=== PATIENT | female | born 1955 | race Caucasian/White ===

== ENCOUNTER 2017-05-04 10:45 | Observation (INO) | payer MEDICAID ==
[2017-05-04] MEDS ORDERED: Sodium Chloride 0.9% 10 ML Syringe FLUSH PRN ×2 (11:20→13:51)
[2017-05-04] MEDS ORDERED: Sodium Chloride 0.9% 1,000 ML IV ONE ×2 (11:21→13:18)
[2017-05-04] MEDS ORDERED: Ondansetron 4 MG/2 ML SDV IVPUSH ONE (11:22)
[2017-05-04] MEDS ORDERED: Ketorolac 30 MG/ML SDV IVPUSH ONE (11:22)
[2017-05-04] MEDS ORDERED: Morphine 4 MG/ML Syringe IVPUSH ONE ×2 (11:22→13:20)
--- NOTE | 2017-05-04 11:27 | EDM.PDOC ---
ED HPI GENERAL MEDICAL PROBLEM - General Chief Complaint: Genitourinary Problem Stated Complaint: RT SIDE/PELVIC PAIN Time Seen by Provider: 05/04/17 11:15 Source of Information: Reports: Patient History Limitations: Reports: No Limitations - History of Present Illness INITIAL COMMENTS - FREE TEXT/NARRATIVE: Perez is a 62 year old female who presents to the ED today with c/o RLQ/Pelvic pain that started on and has progressively gotten worse. Patient reports that the pain is stabbing in nature. Patient also reports hematuria since and BRB from rectum that started last night. Patient denies any vomiting. Patient reports feeling hot and cold. Patient denies having any pain like this in the past, she denies any hx of kidney stones. Patient does still have both ovaries and uterus as well as appendix. Patient denies any dysuria, she does have some mild frequency. Duration: Day(s): (3) - Related Data Allergies Allergy/AdvReac Type Severity Reaction Status Date / Time amoxicillin trihydrate Allergy Liver Verified 12/16/15 06:25 [From Augmentin] Problems potassium clavulanate Allergy Liver Verified 12/16/15 06:25 [From Augmentin] Problems Home Meds: Home Meds NK [No Known Home Meds] 12/16/15 [History] Past Medical History HEENT History: Reports: Impaired Vision Cardiovascular History: Reports: None Respiratory History: Reports: None Gastrointestinal History: Reports: Other (See Below) Other Gastrointestinal History: Had spots on liver that patient states were related to an antibiotic reaction in past. 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: Musculoskeletal History: Reports: None Neurological History: Reports: None Psychiatric History: Reports: None Endocrine/Metabolic History: Reports: None Hematologic History: Reports: None Immunologic History: Reports: None Oncologic (Cancer) History: Reports: None Dermatologic History: Reports: None - Infectious Disease History Infectious Disease History: Reports: None - Past Surgical History Head Surgeries/Procedures: Reports: None HEENT Surgical History: Reports: Adenoidectomy, Tonsillectomy, Other (See Below) GI Surgical History: Reports: Colonoscopy, Hernia Repair/Other Social & Family History - Family History HEENT: Reports: Impaired Vision Cardiac: Reports: Bypass, Hypertension Respiratory: Reports: None GI: Reports: None : Reports: None OBGYN: Reports: None Musculoskeletal: Reports: None Neurological: Reports: None Psychiatric: Reports: None Endocrine/Metabolic: Reports: Diabetes, Type I Hematologic: Reports: None Immunologic: Reports: None Dermatologic: Reports: None Oncologic: Reports: None - Tobacco Use Smoking Status *Q: Never Smoker Second Hand Smoke Exposure: No - Alcohol Use Days Per Week of Alcohol Use: 0 - Recreational Drug Use Recreational Drug Use: No ED ROS GENERAL - Review of Systems Review Of Systems: See Below Constitutional: Reports: Fever, Chills, Decreased Appetite HEENT: Reports: No Symptoms Respiratory: Reports: No Symptoms Cardiovascular: Reports: No Symptoms Endocrine: Reports: No Symptoms GI/Abdominal: Reports: Abdominal Pain, Bloody Stool : Reports: Frequency, Hematuria Musculoskeletal: Reports: No Symptoms Skin: Reports: No Symptoms Neurological: Reports: No Symptoms Psychiatric: Reports: No Symptoms Hematologic/Lymphatic: Reports: No Symptoms Immunologic: Reports: No Symptoms ED EXAM, RENAL/ - Physical Exam Exam: See Below Exam Limited By: No Limitations General Appearance: Alert, WD/WN, Anxious, Other (Distressed secondary to pain) Ears: Normal External Exam Throat/Mouth: Normal Inspection, Other (Mildly dry mucus membranes) Head: Atraumatic Neck: Normal Inspection Respiratory/Chest: No Respiratory Distress, Lungs Clear Cardiovascular: Normal Peripheral Pulses, Regular Rate, Rhythm, No Murmur GI/Abdominal: Normal Bowel Sounds, Guarding (RLQ), Tender, Other (Pain around McBurney's point) Extremities: Normal Inspection Neurological: Alert, Oriented, CN II-XII Intact Psychiatric: Anxious Lymphatic: No Adenopathy Course - Vital Signs Text/Narrative:: 1315-Patient continues to c/o pain. US did come and speak with me, they verbally report a slightly thickened endometrium but otherwise unremarkable. Patient's GFR today is 50, I am going to obtain a CT of abdomen/pelvis. I have ordered another liter of NS secondary to contrast administration and have ordered additional pain medication for patient. 1450-CT results are negative for any acute findings. Discussed results with patient, she reports she is still having pain and feels weak. Patient feels unsafe at this time going home. I do not have a clear etiology for patient's symptoms today. I feel that any concerning etiology at this time has been ruled out. Will discuss patient with hospitalist for observation admission for pain control and safe disposition planning. Patient has been accepted by Dr. Zelaya, will be admitted in stable condition. Last Recorded V/S: Last Vital Signs Temp 36.6 C 05/04/17 14:16 Pulse 62 05/04/17 14:16 Resp 16 05/04/17 14:16 BP 148/76 H 05/04/17 14:16 Pulse Ox 92 L 05/04/17 14:16 - Orders/Labs/Meds Orders: Active Orders 24 hr Category Date Time Status Peripheral IV Care [RC] . DIRECTED Care 05/04/17 11:20 Active Abdomen Pelvis w Cont [CT] Stat Exams 05/04/17 13:18 Taken Pelvis Non OB Comp [US] Stat Exams 05/04/17 12:01 Taken Iopamidol [Isovue-300 (61%)] Med 05/04/17 14:00 Active 150 ml IV . DIRECTED Sodium Chloride 0.9% [Saline Flush] Med 05/04/17 11:20 Active 10 ml FLUSH ASDIRECTED PRN Sodium Chloride 0.9% [Saline Flush] Med 05/04/17 13:51 Active 10 ml FLUSH ONETIME PRN Peripheral IV Insertion Adult [OM.PC] Routine Oth 05/04/17 11:20 Ordered Medication Orders Iopamidol (Isovue-300 (61%)) 150 ml IV . DIRECTED TAL Last Admin: 05/04/17 14:02 Dose: 150 ml Sodium Chloride (Saline Flush) 10 ml FLUSH ASDIRECTED PRN PRN Reason: Keep Vein Open Last Admin: 05/04/17 11:42 Dose: 10 ml Sodium Chloride (Saline Flush) 10 ml FLUSH ONETIME PRN PRN Reason: PER RADIOLOGY PROTOCOL Last Admin: 05/04/17 14:02 Dose: 10 ml Labs: Laboratory Tests 05/04/17 05/04/17 05/04/17 Range/Units 11:31 11:31 12:05 WBC 10.5 (4.5-11.0) K/uL RBC 4.75 (3.30-5.50) M/uL Hgb 14.7 D (12.0-15.0) g/dL Hct 44.7 (36.0-48.0) % MCV 94 (80-98) fL MCH 31 (27-31) pg MCHC 33 (32-36) % Plt Count 261 (150-400) K/uL Neut % (Auto) 73 H (36-66) % Lymph % (Auto) 20 L (24-44) % Wilkin % (Auto) 6 (2-6) % Eos % (Auto) 1 L (2-4) % Baso % (Auto) 0 (0-1) % Sodium 144 (140-148) mmol/L Potassium 3.6 (3.6-5.2) mmol/L Chloride 105 (100-108) mmol/L Carbon Dioxide 31 (21-32) mmol/L Anion Gap 8.4 (5.0-14.0) mmol/L BUN 14 (7-18) mg/dL Creatinine 1.1 H (0.6-1.0) mg/dL Est Cr Clr Drug Dosing 52.81 mL/min Estimated GFR (MDRD) 50 L (>60) Glucose 102 (74-106) mg/dL Calcium 9.1 (8.5-10.1) mg/dL Total Bilirubin 0.5 D (0.2-1.0) mg/dL AST 25 (15-37) U/L ALT 30 (12-78) U/L Alkaline Phosphatase 72 (46-116) U/L Total Protein 7.3 (6.4-8.2) g/dL Albumin 3.4 (3.4-5.0) g/dL Globulin 3.9 H (2.3-3.5) g/dL Albumin/Globulin Ratio 0.9 L (1.2-2.2) Lipase (73-393) U/L Urine Color Yellow Urine Appearance Clear Urine pH 7.0 (4.5-8.0) Ur Specific [place] 1.015 (1.008-1.030) Urine Protein Negative (NEGATIVE) mg/dL Urine Glucose (UA) Normal (NEGATIVE) mg/dL Urine Ketones Negative (NEGATIVE) mg/dL Urine Occult Blood Large (NEGATIVE) Urine Nitrite Negative (NEGATIVE) Urine Bilirubin Negative (NEGATIVE) Urine Urobilinogen Normal (NORMAL) mg/dL Ur Leukocyte Esterase Negative (NEGATIVE) Urine RBC 0-5 (0-5) Urine WBC 0-5 (0-5) Ur Epithelial Cells Moderate Amorphous Sediment Numerous Urine Bacteria Few Urine Mucus Few 05/04/17 Range/Units 14:59 WBC (4.5-11.0) K/uL RBC (3.30-5.50) M/uL Hgb (12.0-15.0) g/dL Hct (36.0-48.0) % MCV (80-98) fL MCH (27-31) pg MCHC (32-36) % Plt Count (150-400) K/uL Neut % (Auto) (36-66) % Lymph % (Auto) (24-44) % Wilkin % (Auto) (2-6) % Eos % (Auto) (2-4) % Baso % (Auto) (0-1) % Sodium (140-148) mmol/L Potassium (3.6-5.2) mmol/L Chloride (100-108) mmol/L Carbon Dioxide (21-32) mmol/L Anion Gap (5.0-14.0) mmol/L BUN (7-18) mg/dL Creatinine (0.6-1.0) mg/dL Est Cr Clr Drug Dosing mL/min Estimated GFR (MDRD) (>60) Glucose (74-106) mg/dL Calcium (8.5-10.1) mg/dL Total Bilirubin (0.2-1.0) mg/dL AST (15-37) U/L ALT (12-78) U/L Alkaline Phosphatase (46-116) U/L Total Protein (6.4-8.2) g/dL Albumin (3.4-5.0) g/dL Globulin (2.3-3.5) g/dL Albumin/Globulin Ratio (1.2-2.2) Lipase 172 (73-393) U/L Urine Color Urine Appearance Urine pH (4.5-8.0) Ur Specific [place] (1.008-1.030) Urine Protein (NEGATIVE) mg/dL Urine Glucose (UA) (NEGATIVE) mg/dL Urine Ketones (NEGATIVE) mg/dL Urine Occult Blood (NEGATIVE) Urine Nitrite (NEGATIVE) Urine Bilirubin (NEGATIVE) Urine Urobilinogen (NORMAL) mg/dL Ur Leukocyte Esterase (NEGATIVE) Urine RBC (0-5) Urine WBC (0-5) Ur Epithelial Cells Amorphous Sediment Urine Bacteria Urine Mucus Meds: Medications Generic Name Dose Route Start Last Admin Trade Name Freq PRN Reason Stop Dose Admin Iopamidol 150 ml 05/04/17 14:00 05/04/17 14:02 Isovue-300 (61%) IV 150 ml . DIRECTED TAL Administration Sodium Chloride 10 ml 05/04/17 11:20 05/04/17 11:42 Saline Flush FLUSH 10 ml ASDIRECTED PRN Administration Keep Vein Open Sodium Chloride 10 ml 05/04/17 13:51 05/04/17 14:02 Saline Flush FLUSH 10 ml ONETIME PRN Administration PER RADIOLOGY PROTOCOL Discontinued Medications Generic Name Dose Route Start Last Admin Trade Name Onur PRN Reason Stop Dose Admin Sodium Chloride 1,000 mls @ 999 mls/hr 05/04/17 11:21 05/04/17 11:44 Normal Saline IV 05/04/17 12:21 999 mls/hr .BOLUS ONE Administration Sodium Chloride 1,000 mls @ 999 mls/hr 05/04/17 13:18 05/04/17 13:44 Normal Saline IV 05/04/17 14:18 999 mls/hr .BOLUS ONE Administration Sodium Chloride 85 mls @ 3 mls/sec 05/04/17 13:51 05/04/17 14:02 Normal Saline IV 05/04/17 13:52 3 mls/sec ONETIME ONE Administration Ketorolac Tromethamine 15 mg 05/04/17 11:22 05/04/17 11:41 Toradol IVPUSH 05/04/17 11:23 15 mg ONETIME ONE Administration Morphine Sulfate 4 mg 05/04/17 11:22 05/04/17 11:42 Morphine IVPUSH 05/04/17 11:23 4 mg ONETIME ONE Administration Morphine Sulfate 4 mg 05/04/17 13:20 05/04/17 13:43 Morphine IVPUSH 05/04/17 13:21 4 mg ONETIME ONE Administration Ondansetron HCl 4 mg 05/04/17 11:22 05/04/17 11:41 Zofran IVPUSH 05/04/17 11:23 4 mg ONETIME ONE Administration Departure - Departure Time of Disposition: 16:00 Disposition: Admitted As Inpatient 65 Condition: Good, Fair Clinical Impression: Right lower quadrant abdominal pain, Weakness generalized - Discharge Information Forms: ED Department Discharge - My Orders Last 24 Hours: My Active Orders 05/04/17 11:20 Peripheral IV Care [RC] . DIRECTED Sodium Chloride 0.9% [Saline Flush] 10 ml FLUSH ASDIRECTED PRN Peripheral IV Insertion Adult [OM.PC] Routine 05/04/17 12:01 Pelvis Non OB Comp [US] Stat 05/04/17 13:18 Abdomen Pelvis w Cont [CT] Stat 05/04/17 13:51 Sodium Chloride 0.9% [Saline Flush] 10 ml FLUSH ONETIME PRN 05/04/17 14:00 Iopamidol [Isovue-300 (61%)] 150 ml IV . DIRECTED - Assessment/Plan Last 24 Hours: My Active Orders 05/04/17 11:20 Peripheral IV Care [RC] . DIRECTED Sodium Chloride 0.9% [Saline Flush] 10 ml FLUSH ASDIRECTED PRN Peripheral IV Insertion Adult [OM.PC] Routine 05/04/17 12:01 Pelvis Non OB Comp [US] Stat 05/04/17 13:18 Abdomen Pelvis w Cont [CT] Stat 05/04/17 13:51 Sodium Chloride 0.9% [Saline Flush] 10 ml FLUSH ONETIME PRN 05/04/17 14:00 Iopamidol [Isovue-300 (61%)] 150 ml IV . DIRECTED
[2017-05-04] MEDS ORDERED: Iopamidol 612 MG/ML 150 ML Bottle IV SCH (14:00)
--- NOTE | 2017-05-04 15:57 | PCM.HP ---
H&P History of Present Illness - General Date of Service: 05/04/17 Admit Problem/Dx: Admission Diagnosis/Problem Admission Diagnosis/Problem Abdominal pain Source of Information: Patient, Provider History Limitations: Reports: No Limitations - History of Present Illness Initial Comments - Free Text/Narative: Perez presents to the emergency room today with 2 days of progressive right lower quadrant and generalized abdominal pain. She reports initially right lower quadrant pain with a variety of descriptions including sharp and pressure- like and achy. Pain radiates throughout the right side of her abdomen. Pain is worse with moving around or any sort of pressure. Food does not seem to make it any worse. She has been taking Tylenol but this does not help any. She has episodes of nausea as well as some vomiting. She has noticed a few episodes of vaginal spotting over the past 2 days as well. This is better relatively small quantity. She thinks maybe she had a small quantity of blood per rectum yesterday as well. She has not had any fevers. She does urinate frequently but this is chronic. No complaints of dysuria or change in her urine. Appetite has been decreased from baseline as has her energy. Weight has been stable. No recent issues with tremors. No obvious sick contacts or travel. Bowels have been moving normally. Workup in the emergency room has been reassuring with fairly normal laboratory testing. CT scan of the abdomen and pelvis did not show acute pathology. Her pelvic ultrasound did show mild thickening of the endometrium but no other obvious causes for her difficulty. She will be admitted for pain control and observation. - Related Data Allergies/Adverse Reactions: Allergies Allergy/AdvReac Type Severity Reaction Status Date / Time amoxicillin trihydrate Allergy Liver Verified 12/16/15 06:25 [From Augmentin] Problems potassium clavulanate Allergy Liver Verified 12/16/15 06:25 [From Augmentin] Problems Home Medications: Home Meds NK [No Known Home Meds] 12/16/15 [History] Past Medical History HEENT History: Reports: Impaired Vision Cardiovascular History: Reports: None Respiratory History: Reports: None Gastrointestinal History: Reports: Other (See Below) Other Gastrointestinal History: Had spots on liver that patient states were related to an antibiotic reaction in past. 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: Musculoskeletal History: Reports: None Neurological History: Reports: None Psychiatric History: Reports: None Endocrine/Metabolic History: Reports: None Hematologic History: Reports: None Immunologic History: Reports: None Oncologic (Cancer) History: Reports: None Dermatologic History: Reports: None - Infectious Disease History Infectious Disease History: Reports: None - Past Surgical History Head Surgeries/Procedures: Reports: None HEENT Surgical History: Reports: Adenoidectomy, Tonsillectomy, Other (See Below) GI Surgical History: Reports: Colonoscopy, Hernia Repair/Other Social & Family History - Family History HEENT: Reports: Impaired Vision Cardiac: Reports: Bypass, Hypertension Respiratory: Reports: None GI: Reports: None : Reports: None OBGYN: Reports: None Musculoskeletal: Reports: None Neurological: Reports: None Psychiatric: Reports: None Endocrine/Metabolic: Reports: Diabetes, Type I Hematologic: Reports: None Immunologic: Reports: None Dermatologic: Reports: None Oncologic: Reports: None - Tobacco Use Smoking Status *Q: Never Smoker Second Hand Smoke Exposure: No - Alcohol Use Days Per Week of Alcohol Use: 0 - Recreational Drug Use Recreational Drug Use: No H&P Review of Systems - Review of Systems: Review Of Systems: See Below Free Text/Narrative: A complete 12 point review of systems was obtained. Pertinent positives and negatives are noted in the history of present illness. All other systems were reviewed and were negative except as noted. Exam - Exam Exam: See Below - Vital Signs Vital Signs: Last Vital Signs Temp 36.6 C 05/04/17 14:16 Pulse 62 05/04/17 14:16 Resp 16 05/04/17 14:16 BP 148/76 H 05/04/17 14:16 Pulse Ox 92 L 05/04/17 14:16 Weight: 99.337 kg - Exam Quality Assessment: No: Supplemental Oxygen General: Alert, Oriented, Cooperative, Mild Distress HEENT: Conjunctiva Clear, Mucosa Moist & [place]. No: Scleral Icterus Neck: Supple, Trachea Midline. No: Lymphadenopathy, Thyromegaly Lungs: Clear to Auscultation, Normal Respiratory Effort Cardiovascular: Regular Rate, Regular Rhythm, Normal S1, Normal S2, Systolic Murmur Abdomen: Normal Bowel Sounds, Soft, Guarding, Tenderness (Moderate diffuse tenderness with palpation). No: Distention, Mass Back Exam: Normal Inspection, Full Range of Motion Extremities: Normal Inspection, Normal Pulses. No: Cyanosis, Edema Peripheral Pulses: 2+: Dorsalis Pedis (L), Dorsalis Pedis (R) Skin: Warm, Dry, Intact Neuro Extensive - Mental Status: Alert, Oriented x3, Nl Response to Commands Neuro Extensive - Motor, Sensory, Reflexes: CN II-XII Intact. No: Dysarthria, Abnormal Motor, Tremor Psychiatric: Alert, Normal Affect - Patient Data Lab Results Last 24 hrs: Laboratory Results - last 24 hr 05/04/17 05/04/17 05/04/17 Range/Units 11:31 11:31 12:05 WBC 10.5 (4.5-11.0) K/uL RBC 4.75 (3.30-5.50) M/uL Hgb 14.7 D (12.0-15.0) g/dL Hct 44.7 (36.0-48.0) % MCV 94 (80-98) fL MCH 31 (27-31) pg MCHC 33 (32-36) % Plt Count 261 (150-400) K/uL Neut % (Auto) 73 H (36-66) % Lymph % (Auto) 20 L (24-44) % Winn % (Auto) 6 (2-6) % Eos % (Auto) 1 L (2-4) % Baso % (Auto) 0 (0-1) % Sodium 144 (140-148) mmol/L Potassium 3.6 (3.6-5.2) mmol/L Chloride 105 (100-108) mmol/L Carbon Dioxide 31 (21-32) mmol/L Anion Gap 8.4 (5.0-14.0) mmol/L BUN 14 (7-18) mg/dL Creatinine 1.1 H (0.6-1.0) mg/dL Est Cr Clr Drug Dosing 52.81 mL/min Estimated GFR (MDRD) 50 L (>60) Glucose 102 (74-106) mg/dL Calcium 9.1 (8.5-10.1) mg/dL Total Bilirubin 0.5 D (0.2-1.0) mg/dL AST 25 (15-37) U/L ALT 30 (12-78) U/L Alkaline Phosphatase 72 (46-116) U/L Total Protein 7.3 (6.4-8.2) g/dL Albumin 3.4 (3.4-5.0) g/dL Globulin 3.9 H (2.3-3.5) g/dL Albumin/Globulin Ratio 0.9 L (1.2-2.2) Lipase (73-393) U/L Urine Color Yellow Urine Appearance Clear Urine pH 7.0 (4.5-8.0) Ur Specific [place] 1.015 (1.008-1.030) Urine Protein Negative (NEGATIVE) mg/dL Urine Glucose (UA) Normal (NEGATIVE) mg/dL Urine Ketones Negative (NEGATIVE) mg/dL Urine Occult Blood Large (NEGATIVE) Urine Nitrite Negative (NEGATIVE) Urine Bilirubin Negative (NEGATIVE) Urine Urobilinogen Normal (NORMAL) mg/dL Ur Leukocyte Esterase Negative (NEGATIVE) Urine RBC 0-5 (0-5) Urine WBC 0-5 (0-5) Ur Epithelial Cells Moderate Amorphous Sediment Numerous Urine Bacteria Few Urine Mucus Few 05/04/17 Range/Units 14:59 WBC (4.5-11.0) K/uL RBC (3.30-5.50) M/uL Hgb (12.0-15.0) g/dL Hct (36.0-48.0) % MCV (80-98) fL MCH (27-31) pg MCHC (32-36) % Plt Count (150-400) K/uL Neut % (Auto) (36-66) % Lymph % (Auto) (24-44) % Winn % (Auto) (2-6) % Eos % (Auto) (2-4) % Baso % (Auto) (0-1) % Sodium (140-148) mmol/L Potassium (3.6-5.2) mmol/L Chloride (100-108) mmol/L Carbon Dioxide (21-32) mmol/L Anion Gap (5.0-14.0) mmol/L BUN (7-18) mg/dL Creatinine (0.6-1.0) mg/dL Est Cr Clr Drug Dosing mL/min Estimated GFR (MDRD) (>60) Glucose (74-106) mg/dL Calcium (8.5-10.1) mg/dL Total Bilirubin (0.2-1.0) mg/dL AST (15-37) U/L ALT (12-78) U/L Alkaline Phosphatase (46-116) U/L Total Protein (6.4-8.2) g/dL Albumin (3.4-5.0) g/dL Globulin (2.3-3.5) g/dL Albumin/Globulin Ratio (1.2-2.2) Lipase 172 (73-393) U/L Urine Color Urine Appearance Urine pH (4.5-8.0) Ur Specific [place] (1.008-1.030) Urine Protein (NEGATIVE) mg/dL Urine Glucose (UA) (NEGATIVE) mg/dL Urine Ketones (NEGATIVE) mg/dL Urine Occult Blood (NEGATIVE) Urine Nitrite (NEGATIVE) Urine Bilirubin (NEGATIVE) Urine Urobilinogen (NORMAL) mg/dL Ur Leukocyte Esterase (NEGATIVE) Urine RBC (0-5) Urine WBC (0-5) Ur Epithelial Cells Amorphous Sediment Urine Bacteria Urine Mucus Result Diagrams: 05/04/17 11:31 05/04/17 11:31 Bipin Results Last 24 hrs: Microbiology 05/04/17 12:00 Occult Blood - Final Stool / Feces Imaging Impressions Last 24 hrs: Pelvic ultrasound - mild thickening of the endometrium noted by the radiologist CT of the abdomen and pelvis - images personally reviewed - no acute pathology is identified. No evidence for appendicitis. Status post cholecystectomy. No bowel wall thickening or abscess noted. No free fluid. No evidence for pyelonephritis. *Q Meaningful Use (ADM) - VTE *Q VTE Criteria *Q: - VTE Risk Assess *Q Each Risk Factor Represents 1 Point: Obesity (BMI greater than 30) Total Score 1 Point Risk Factors: 1 Each Risk Factor Represents 2 Points: Age 60 - 74 Years Total Score 2 Point Risk Factors: 2 Each Risk Factor Represents 3 Points: None Total Score 3 Point Risk Factors: 0 Each Risk Factor Represents 5 Points: None Total Score 5 Point Risk Factors: 0 Venous Thromboembolism Risk Factor Score *Q: 3 - Stroke *Q Stroke Criteria *Q: - AMI *Q AMI Criteria *Q: - Problem List (1) Generalized abdominal pain SNOMED Code(s): 404876624 ICD Code: R10.84 - GENERALIZED ABDOMINAL PAIN Status: Acute Current Visit : Yes (2) Post-menopause bleeding SNOMED Code(s): 44180288 ICD Code: N95.0 - POSTMENOPAUSAL BLEEDING Status: Acute Current Visit: Yes Problem List Initiated/Reviewed/Updated: Yes Orders Last 24hrs: Active Orders 24 hr Category Date Time Status Patient Status Manage Transfer [TRANSFER] Routine ADT 05/04/17 15:42 Ordered Peripheral IV Care [RC] . DIRECTED Care 05/04/17 11:20 Active Abdomen Pelvis w Cont [CT] Stat Exams 05/04/17 13:18 Taken Pelvis Non OB Comp [US] Stat Exams 05/04/17 12:01 Taken Iopamidol [Isovue-300 (61%)] Med 05/04/17 14:00 Active 150 ml IV . DIRECTED Sodium Chloride 0.9% [Saline Flush] Med 05/04/17 11:20 Active 10 ml FLUSH ASDIRECTED PRN Sodium Chloride 0.9% [Saline Flush] Med 05/04/17 13:51 Active 10 ml FLUSH ONETIME PRN Peripheral IV Insertion Adult [OM.PC] Routine Oth 05/04/17 11:20 Ordered Resuscitation Status Routine Resus Stat 05/04/17 15:43 Ordered Medication Orders Iopamidol (Isovue-300 (61%)) 150 ml IV . DIRECTED TAL Last Admin: 05/04/17 14:02 Dose: 150 ml Sodium Chloride (Saline Flush) 10 ml FLUSH ASDIRECTED PRN PRN Reason: Keep Vein Open Last Admin: 05/04/17 11:42 Dose: 10 ml Sodium Chloride (Saline Flush) 10 ml FLUSH ONETIME PRN PRN Reason: PER RADIOLOGY PROTOCOL Last Admin: 05/04/17 14:02 Dose: 10 ml Assessment/Plan Comment:: ASSESSMENT AND PLAN- Generalized abdominal pain - etiology not entirely clear and seems to be mostly focused in the right lower quadrant. Examination is remarkable for fairly exquisite tenderness even with extremely light palpation. Imaging and laboratory studies as well as vital signs are all reassuring. Intra-abdominal spasm could be considered. C-reactive protein is low. Viral infection/ inflammation could be considered though would be atypical. Autoimmune disease unlikely with normal C-reactive protein. No diarrhea. -Pain and nausea control -Advance diet as tolerated -Blood cultures and consider empiric gastrointestinal coverage antibiotics if she spikes a fever Postmenopausal bleeding - mild thickening of the endometrium noted on pelvic ultrasound. No active bleeding noted during the emergency room stay so far. -Outpatient AGER TENDER follow-up Maintenance issues - - DVT prophylaxis - mechanical - GI prophylaxis - not indicated - Nutrition - full liquids - Bauer catheter - not indicated CODE STATUS - full code Admission justification - patient will be referred to observation status for pain control and additional monitoring with abdominal pain of unclear etiology Disposition - anticipate discharge to home tomorrow Primary care physician - Dr Monica Zelaya M.D.
[2017-05-04] MEDS ORDERED: Ketorolac 30 MG/ML SDV IM PRN (17:59)
[2017-05-04] MEDS ORDERED: Polyethylene Glycol 3350 Powder 17 GM Packet PO PRN (17:59)
[2017-05-04] MEDS ORDERED: Ondansetron 4 MG/2 ML SDV IV PRN (17:59)
[2017-05-04] MEDS ORDERED: Acetaminophen 325 MG Tab PO PRN (17:59)
[2017-05-04] MEDS ORDERED: Hyoscyamine 0.125 MG Tab.SL SL PRN (17:59)
[2017-05-04] MEDS ORDERED: Morphine 4 MG/ML Syringe IVPUSH PRN (17:59)
[2017-05-04] MEDS: NS + KCl 20mEq/L 1,000 ML IV SCH (18:40)
[2017-05-04] MEDS: oxyCODONE 5 MG Tab PO PRN (20:38)
[2017-05-05] MEDS: Ondansetron 4 MG Tab.DIS PO PRN ×2 (01:22→10:16)
[2017-05-05] MEDS: oxyCODONE 5 MG Tab PO PRN (01:22)
[2017-05-05] MEDS: NS + KCl 20mEq/L 1,000 ML IV SCH (02:41)
[2017-05-05] MEDS: Ketorolac 10 MG Tab PO PRN ×2 (11:01→19:27)
--- NOTE | 2017-05-05 14:16 | PCM.PN ---
- General Info Date of Service: 05/05/17 Functional Status: Reports: pain controlled, tolerating diet - Review of Systems Gastrointestinal: Reports: Abdominal pain Systems Review Comment:: ongoing abdominal pain this morning but no acute events overnight. She reports mild generalized pain and moderate to moderately severe right lower quadrant abdominal pain. She has not had additional spotting today other than maybe a small quantity while she was in the shower. No blood in her stool. Not much of an appetite this morning. Abdominal pain did improve today after she received a dose of Toradol. She was able to eat lunch without nausea or vomiting. - Patient Data Vitals - most recent: Last Vital Signs Temp 36.6 C 05/05/17 11:09 Pulse 50 L 05/05/17 11:09 Resp 16 05/05/17 11:09 BP 137/72 05/05/17 11:09 Pulse Ox 100 05/05/17 11:09 Weight - most recent: 96.87 kg I&O - last 24 hours: Intake & Output 05/04/17 05/05/17 05/05/17 22:59 06:59 14:59 Intake Total 240 1260 1420 Output Total 700 300 Balance 280 441 9285 Lab Results last 24 hrs: Laboratory Results - last 24 hr 05/04/17 05/05/17 05/05/17 Range/Units 18:03 05:12 05:12 WBC 8.3 (4.5-11.0) K/uL RBC 4.08 (3.30-5.50) M/uL Hgb 12.6 D (12.0-15.0) g/dL Hct 39.6 (36.0-48.0) % MCV 97 (80-98) fL MCH 31 (27-31) pg MCHC 32 (32-36) % Plt Count 222 (150-400) K/uL ESR 14 (0-25) mm/hr Sodium 141 (140-148) mmol/L Potassium 4.3 (3.6-5.2) mmol/L Chloride 107 (100-108) mmol/L Carbon Dioxide 30 (21-32) mmol/L Anion Gap 4.1 L (5.0-14.0) mmol/L BUN 11 (7-18) mg/dL Creatinine 0.9 (0.6-1.0) mg/dL Est Cr Clr Drug Dosing 66.86 mL/min Estimated GFR (MDRD) > 60 (>60) Glucose 85 (74-106) mg/dL Calcium 8.3 L (8.5-10.1) mg/dL TSH, Ultra Sensitive 1.680 (0.358-3.740) uIU/mL Med Orders - Current: Current Medications Acetaminophen (Tylenol) 650 mg PO Q4H PRN PRN Reason: Pain (Mild 1-3)/fever Hyoscyamine (Hyomax-Sl) 0.125 mg SL Q4H PRN PRN Reason: Abdominal Pain Last Admin: 05/05/17 11:01 Dose: 0.125 mg Potassium Chloride/Sodium Chloride (Normal Saline With 20 Meq Kcl) 1,000 mls @ 125 mls/hr IV ASDIRECTED TAL Last Admin: 05/05/17 02:41 Dose: 125 mls/hr Ketorolac Tromethamine (Toradol) 10 mg PO Q6H PRN PRN Reason: Pain Stop: 05/10/17 10:38 Last Admin: 05/05/17 11:01 Dose: 10 mg Morphine Sulfate (Morphine) 4 - 8 mg IVPUSH Q2H PRN PRN Reason: Pain (severe 7-10) Ondansetron HCl (Zofran Odt) 4 mg PO Q6H PRN PRN Reason: Nausea able to take PO Last Admin: 05/05/17 10:16 Dose: 4 mg Ondansetron HCl (Zofran) 4 mg IV Q6H PRN PRN Reason: Nausea/Vomiting Last Admin: 05/04/17 18:30 Dose: 4 mg Oxycodone HCl (Oxycodone) 5 - 10 mg PO Q4H PRN PRN Reason: Pain (moderate 4-6) Last Admin: 05/05/17 01:22 Dose: 10 mg Polyethylene Glycol (Miralax) 17 gm PO DAILY PRN PRN Reason: Constipation Sodium Chloride (Saline Flush) 10 ml FLUSH ONETIME PRN PRN Reason: PER RADIOLOGY PROTOCOL Last Admin: 05/04/17 14:02 Dose: 10 ml Discontinued Medications Sodium Chloride (Normal Saline) 1,000 mls @ 999 mls/hr IV .BOLUS ONE Stop: 05/04/17 12:21 Last Admin: 05/04/17 11:44 Dose: 999 mls/hr Sodium Chloride (Normal Saline) 1,000 mls @ 999 mls/hr IV .BOLUS ONE Stop: 05/04/17 14:18 Last Admin: 05/04/17 13:44 Dose: 999 mls/hr Sodium Chloride (Normal Saline) 85 mls @ 3 mls/sec IV ONETIME ONE Stop: 05/04/17 13:52 Last Admin: 05/04/17 14:02 Dose: 3 mls/sec Iopamidol (Isovue-300 (61%)) 150 ml IV . DIRECTED TAL Last Admin: 05/04/17 14:02 Dose: 150 ml Ketorolac Tromethamine (Toradol) 15 mg IVPUSH ONETIME ONE Stop: 05/04/17 11:23 Last Admin: 05/04/17 11:41 Dose: 15 mg Ketorolac Tromethamine (Toradol) 15 mg IM Q6H PRN PRN Reason: Pain (moderate 4-6) Stop: 05/09/17 18:00 Morphine Sulfate (Morphine) 4 mg IVPUSH ONETIME ONE Stop: 05/04/17 11:23 Last Admin: 05/04/17 11:42 Dose: 4 mg Morphine Sulfate (Morphine) 4 mg IVPUSH ONETIME ONE Stop: 05/04/17 13:21 Last Admin: 05/04/17 13:43 Dose: 4 mg Ondansetron HCl (Zofran) 4 mg IVPUSH ONETIME ONE Stop: 05/04/17 11:23 Last Admin: 05/04/17 11:41 Dose: 4 mg Sodium Chloride (Saline Flush) 10 ml FLUSH ASDIRECTED PRN PRN Reason: Keep Vein Open Last Admin: 05/04/17 11:42 Dose: 10 ml - Exam General: alert, oriented, cooperative, no acute distress Neck: supple Lungs: Normal respiratory effort Cardiovascular: Regular Rate, Regular Rhythm Abdomen: soft, no distension, tenderness (mild diffuse, moderate RLQ) Extremities: no edema, no cyanosis Skin: warm, dry Psy/Mental Status: alert, normal affect - Problem List & Annotations (1) Generalized abdominal pain SNOMED Code(s): 432489778 Code(s): R10.84 - GENERALIZED ABDOMINAL PAIN Status: Acute Current Visit : Yes (2) Post-menopause bleeding SNOMED Code(s): 00448770 Code(s): N95.0 - POSTMENOPAUSAL BLEEDING Status: Acute Current Visit: Yes - Problem List Review Problem List Initiated/Reviewed/Updated: Yes - My Orders Last 24 Hours: My Active Orders 05/04/17 15:43 Resuscitation Status Routine 05/04/17 17:59 Patient Status [ADT] Routine Intake and Output [RC] QSHIFT Notify Provider Vital Signs [RC] ASDIRECTED Oxygen Therapy [RC] PRN Up With Assistance [RC] ASDIRECTED VTE/DVT Education [RC] Per Unit Routine Vital Signs [RC] Q4H Acetaminophen [Tylenol] 650 mg PO Q4H PRN Hyoscyamine [Hyomax-SL] 0.125 mg SL Q4H PRN Morphine 4 - 8 mg IVPUSH Q2H PRN NS + KCl 20mEq/L [Normal Saline with 20 mEq KCl] 1,000 ml IV ASDIRECTED Ondansetron [Zofran ODT] 4 mg PO Q6H PRN Ondansetron [Zofran] 4 mg IV Q6H PRN Polyethylene Glycol 3350 [MiraLAX] 17 gm PO DAILY PRN oxyCODONE 5 - 10 mg PO Q4H PRN Sequential Compression Device [OM.PC] Per Unit Routine 05/04/17 18:03 CULTURE URINE [RM] Routine 05/05/17 10:37 Ketorolac [Toradol] 10 mg PO Q6H PRN 05/05/17 Dinner Regular Diet [DIET] - Plan Plan:: ASSESSMENT AND PLAN- Generalized abdominal pain - etiology not entirely clear and seems to be mostly focused in the right lower quadrant. feeling a little better after anti- inflammatory treatment. No significant bleeding troubles overnight. No vomiting or diarrhea. -Continue Toradol -Pain and nausea control -Advance diet as tolerated -Blood cultures and consider empiric gastrointestinal coverage antibiotics if she spikes a fever Postmenopausal bleeding - mild thickening of the endometrium noted on pelvic ultrasound. No active bleeding noted during the hospital stay. -Outpatient [facility] follow-up Maintenance issues - - DVT prophylaxis - mechanical - GI prophylaxis - not indicated - Nutrition - full liquids Disposition - anticipate discharge to home tomorrow Primary care physician - Dr Monica Zelaya M.D.
[2017-05-06] MEDS: Ketorolac 10 MG Tab PO PRN (06:48)
--- NOTE | 2017-05-06 11:08 | US ---
Pelvis Non OB Comp HISTORY: Pelvic pain, vaginal bleeding. COMPARISON: CT scan of 09/20/2015 FINDINGS: Transpelvic exam was performed. The uterus measures 6.7 x 2.9 x 4.4 cm. The endometrial th ickness is 7 mm. The right and left ovaries were not seen due to overlying bowel gas. Appendix not visualized in the right lower quadrant. Impression: Thickened endometrium for postmenopausal bleeding patient. Would suggest [facility] consult.
[2017-05-06 11:38] VITALS: BP 150/82
[2017-05-06] MEDS: oxyCODONE 5 MG Tab PO PRN (12:24)
--- NOTE | 2017-05-06 15:20 | PCM.DCSUM1 ---
Discharge Summary - Hospital Course Brief History: This patient is a 62-year-old woman who was admitted through the emergency department to observation status for further evaluation of right lower quadrant and pelvic pain. - Discharge Data Discharge Date: 05/06/17 Discharge Disposition: Home, Self-Care 01 Condition: Fair - Discharge Diagnosis/Problem(s) (1) Right lower quadrant abdominal pain SNOMED Code(s): 666769663 ICD Code: R10.31 - RIGHT LOWER QUADRANT PAIN Status: Acute Current Visit : Yes (2) Post-menopause bleeding SNOMED Code(s): 41918133 ICD Code: N95.0 - POSTMENOPAUSAL BLEEDING Status: Acute Current Visit: Yes - Patient Summary/Data Hospital Course: This patient developed symptoms of right lower quadrant pain and pelvic pain that started approximately 2 days prior to admission. On evaluation in the emergency department her white blood cell count was within normal range, CT scan of the abdomen showed no significant abnormalities to explain current symptoms of pain. She was admitted to observation status, given IV fluids and medication as needed for pain and nausea. She remained hemodynamically stable and afebrile throughout her hospital stay. Laboratory studies remained unremarkable. Pelvic ultrasound was obtained and did show some mild thickening of the pelvic stripe but no other significant abnormalities. During that period of time prior to admission the pain developed she also had difficulty with vaginal bleeding. While in the hospital she had no further vaginal bleeding. [employer] consult will be arranged for the patient as an outpatient for further evaluation and management of her postmenopausal bleeding as well as the thickened endometrial stripe. Follow-up appointment will be scheduled with her primary care provider Dr. Anderson this week. I've instructed that she be off work until a week from today are until she seen Dr. Anderson. Activity will be as tolerated and she will resume her usual diet. If pain worsens or does not improve or she develops other significant symptoms or fever she will come back to the emergency room for reevaluation. - Patient Instructions Diet: Usual Diet as Tolerated Activity: As Tolerated Other/Special Instructions: Please schedule gynecology consult either in [place] or [place] whichever is sooner, for further evaluation of pelvic pain and postmenopausal bleeding. Please schedule follow-up appointment with Dr. Anderson this week. - Discharge Plan Prescriptions/Med Rec: Ibuprofen 600 mg PO Q6H PRN #30 tablet PRN Reason: Pain Ondansetron [Zofran ODT] 4 mg PO Q4H PRN #12 tab.dis PRN Reason: Nausea oxyCODONE 5 - 10 mg PO Q4H PRN #24 tablet PRN Reason: Pain Home Medications: Home Meds Ibuprofen 600 mg PO Q6H PRN #30 tablet 05/06/17 [Rx] Ondansetron [Zofran ODT] 4 mg PO Q4H PRN #12 tab.dis 05/06/17 [Rx] oxyCODONE 5 - 10 mg PO Q4H PRN #24 tablet 05/06/17 [Rx] Patient Handouts: Abdominal Pain, Adult Forms: ED Department Discharge Referrals: Lei Anderson MD [Primary Care Provider] - - Patient Data Vitals - Most Recent: Last Vital Signs Temp 99 F 05/06/17 11:37 Pulse 53 L 05/06/17 11:37 Resp 12 05/06/17 11:37 BP 150/82 H 05/06/17 11:37 Pulse Ox 93 L 05/06/17 11:37 Weight - Most Recent: 213 lb 8.989 oz I&O - Last 24 hours: Intake & Output 05/06/17 05/06/17 05/06/17 06:59 14:59 22:59 Intake Total 60 240 Balance 60 240 ISI Results - Last 24 hrs: Microbiology 05/04/17 18:03 Urine Culture - Preliminary Urine, Clean Catch MIXED POSITIVE QUENTIN DAY 1 Med Orders - Current: Current Medications Acetaminophen (Tylenol) 650 mg PO Q4H PRN PRN Reason: Pain (Mild 1-3)/fever Last Admin: 05/06/17 12:24 Dose: 650 mg Hyoscyamine (Hyomax-Sl) 0.125 mg SL Q4H PRN PRN Reason: Abdominal Pain Last Admin: 05/05/17 11:01 Dose: 0.125 mg Ketorolac Tromethamine (Toradol) 10 mg PO Q6H PRN PRN Reason: Pain Stop: 05/10/17 10:38 Last Admin: 05/06/17 06:48 Dose: 10 mg Ondansetron HCl (Zofran Odt) 4 mg PO Q6H PRN PRN Reason: Nausea able to take PO Last Admin: 05/05/17 10:16 Dose: 4 mg Oxycodone HCl (Oxycodone) 5 - 10 mg PO Q4H PRN PRN Reason: Pain (moderate 4-6) Last Admin: 05/06/17 12:24 Dose: 10 mg Polyethylene Glycol (Miralax) 17 gm PO DAILY PRN PRN Reason: Constipation Discontinued Medications Sodium Chloride (Normal Saline) 1,000 mls @ 999 mls/hr IV .BOLUS ONE Stop: 05/04/17 12:21 Last Admin: 05/04/17 11:44 Dose: 999 mls/hr Sodium Chloride (Normal Saline) 1,000 mls @ 999 mls/hr IV .BOLUS ONE Stop: 05/04/17 14:18 Last Admin: 05/04/17 13:44 Dose: 999 mls/hr Sodium Chloride (Normal Saline) 85 mls @ 3 mls/sec IV ONETIME ONE Stop: 05/04/17 13:52 Last Admin: 05/04/17 14:02 Dose: 3 mls/sec Potassium Chloride/Sodium Chloride (Normal Saline With 20 Meq Kcl) 1,000 mls @ 125 mls/hr IV ASDIRECTED [facility] Last Admin: 05/05/17 02:41 Dose: 125 mls/hr Iopamidol (Isovue-300 (61%)) 150 ml IV . DIRECTED [facility] Last Admin: 05/04/17 14:02 Dose: 150 ml Ketorolac Tromethamine (Toradol) 15 mg IVPUSH ONETIME ONE Stop: 05/04/17 11:23 Last Admin: 05/04/17 11:41 Dose: 15 mg Ketorolac Tromethamine (Toradol) 15 mg IM Q6H PRN PRN Reason: Pain (moderate 4-6) Stop: 05/09/17 18:00 Morphine Sulfate (Morphine) 4 mg IVPUSH ONETIME ONE Stop: 05/04/17 11:23 Last Admin: 05/04/17 11:42 Dose: 4 mg Morphine Sulfate (Morphine) 4 mg IVPUSH ONETIME ONE Stop: 05/04/17 13:21 Last Admin: 05/04/17 13:43 Dose: 4 mg Morphine Sulfate (Morphine) 4 - 8 mg IVPUSH Q2H PRN PRN Reason: Pain (severe 7-10) Ondansetron HCl (Zofran) 4 mg IVPUSH ONETIME ONE Stop: 05/04/17 11:23 Last Admin: 05/04/17 11:41 Dose: 4 mg Ondansetron HCl (Zofran) 4 mg IV Q6H PRN PRN Reason: Nausea/Vomiting Last Admin: 05/04/17 18:30 Dose: 4 mg Sodium Chloride (Saline Flush) 10 ml FLUSH ASDIRECTED PRN PRN Reason: Keep Vein Open Last Admin: 05/04/17 11:42 Dose: 10 ml Sodium Chloride (Saline Flush) 10 ml FLUSH ONETIME PRN PRN Reason: PER RADIOLOGY PROTOCOL Last Admin: 05/04/17 14:02 Dose: 10 ml *Q Meaningful Use (DIS) - VTE *Q VTE Criteria *Q: - Stroke *Q Stroke Criteria *Q: - AMI *Q AMI Criteria *Q:
== END 2017-05-06 15:30 | disposition home or self-care (01) ==
LOC: JP.ED 10:45 → JP.2SS 15:42 → JP.MS 05-05 14:44
PROVIDERS: ADMIT Internal Medicine; ATTEND Internal Medicine
DX: R10.31 Right lower quadrant pain (principal); N95.0 Postmenopausal bleeding; Z88.1 Allergy status to other antibiotic agents; Z88.8 Allergy status to other drugs, medicaments and biological substances; Z79.899 Other long term (current) drug therapy; Z98.890 Other specified postprocedural states
CPT/HCPCS: 36415; 74177; 76856; 80048; 80053; 81001; 82270; 83690; 84443; 85025; 85027; 85651; 87086; 96361; 96374; 96375; 96376; 99285; A9270; J1885; J2270; J2405; J3480; J7030; J7040; J7050; 96365; 96366; 99217; 99220; 99225; G0378